=== PATIENT | female | born 1960 | race Caucasian/White ===

== ENCOUNTER 2019-01-06 15:23 | Emergency (ER) | payer OTHER ==
[~2019-01-06] VITALS: Ht 160 cm; Wt 122.9 kg
[~2019-01-06 15:23] MED LIST: AMBIEN10 MG PO; AMBIEN5 MG PO; DEMADEX20 MG PO; MELOXICAM15 MG PO; NORCO 5-325 TA1 EACH PO; NORVASC10 MG PO; PENICILLIN V P500 MG PO; VIIBRYD40 MG PO; ZOLOFT50 MG PO
--- OUTSIDE RECORDS SUMMARY | 2019-01-06 15:26 | XMS ---
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 Riccardo has no Care Guidelines for this patient. Sergei VISIT COUNT (12 MO.) 1 KRIS Ley TOTAL 1 NOTE: Visits indicate total known visits. ED/C VISIT TRACKING (12 MO.) 01/06/2019 15:24 KRIS Rud[facility] [place] TYPE: Emergency COMPLAINT: - BILATE KNEE PAIN,INJURY INPATIENT VISIT TRACKING (12 MO.) No inpatient visits to display in this time frame [id number]
[2019-01-06] MEDS ORDERED: NORCO 5-325 TA1 EACH PO (16:36)
== END 2019-01-06 17:06 | disposition home or self-care (01) ==
LOC: ED 15:23
DX: S83.92XA Sprain of unspecified site of left knee, initial encounter (principal); S83.91XA Sprain of unspecified site of right knee, initial encounter; I10 Essential (primary) hypertension; F17.200 Nicotine dependence, unspecified, uncomplicated; Z88.5 Allergy status to narcotic agent; W19.XXXA Unspecified fall, initial encounter; Y99.0 Civilian activity done for income or pay
CPT/HCPCS: 73560; 99283

== ENCOUNTER 2020-12-31 09:26 | Emergency (ER) | payer OTHER ==
[~2020-12-31] VITALS: Ht 160 cm; Wt 119.3 kg
--- OUTSIDE RECORDS SUMMARY | 2020-12-31 09:30 | XMS ---
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 Riccardo has no Care Guidelines for this patient. Sergei VISIT COUNT (12 MO.) 1 KRIS Ley TOTAL 1 NOTE: Visits indicate total known visits. ED/C VISIT TRACKING (12 MO.) 12/31/2020 09:27 KRIS [facility] [place] TYPE: Emergency COMPLAINT: - R CALF PAIN INPATIENT VISIT TRACKING (12 MO.) No inpatient visits to display in this time frame [id number]
[2020-12-31] MEDS ORDERED: CYCLOBENZAPRINE10 MG PO (09:39)
[2020-12-31] MEDS ORDERED: TOLTERODINE TART2 MG PO (09:39)
[2020-12-31] MEDS ORDERED: LOSARTAN POTAS100 MG PO (09:39)
[2020-12-31] MEDS ORDERED: PREDNISONE20 MG PO (11:38)
== END 2020-12-31 12:00 | disposition home or self-care (01) ==
LOC: ED 09:26
DX: M54.41 Lumbago with sciatica, right side (principal); I10 Essential (primary) hypertension; F17.200 Nicotine dependence, unspecified, uncomplicated; Z88.5 Allergy status to narcotic agent; Z79.899 Other long term (current) drug therapy
CPT/HCPCS: 96374; 96375; 99283-25; J1100; J1885